=== PATIENT | female | born 1945 | race Caucasian/White ===

== ENCOUNTER 2017-07-27 15:29 | Emergency (ER) | payer SELFPAY ==
[~2017-07-27] VITALS: Ht 157.5 cm; Wt 63.5 kg
--- NOTE | 2017-07-27 15:29 | NUR ---
Patient to bed 2 by EMS
[2017-07-27 15:33] VITALS: BP 155/96
[2017-07-27] MEDS ORDERED: METFORMIN 500 MG (15:39)
[2017-07-27] MEDS ORDERED: LEVOTHYROXINE 25 MCG (15:39)
[2017-07-27] MEDS ORDERED: ATORVASTATIN 20 MG TABLET (15:39)
[2017-07-27] MEDS ORDERED: ASPIRIN 81 MG (15:39)
--- NOTE | 2017-07-27 15:41 | NUR ---
PATIENT PRESENTS TO ED WITH CONSTIPATION X 3 DAYS WITH DIFFICULTY WITH BOWEL MOVEMENTS. PT C/O NAUSEA; SKIN IS PINK/WARM/DRY; AAOX4 WITH EVEN AND STEADY GAIT; LUNGS CLEAR BL; HR EVEN AND REGULAR; PT DENIES ANY FEVER, CP, SOB, OR COUGH AT THIS TIME; PATIENT STATES PAIN OF 0/10 AT THIS TIME; VSS; PATIENT POSITIONED FOR COMFORT; HOB ELEVATED; BEDRAILS UP X2; BED DOWN. ER MD MADE AWARE OF PT STATUS.
--- NOTE | 2017-07-27 15:50 | NUR ---
DR. PISANO EVALUATING PT AT BEDSIDE.
[2017-07-27 16:11] VITALS: BP 147/82
--- NOTE | 2017-07-27 16:11 | NUR ---
Patient discharged with v/s stable. Written and verbal after care instructions given and explained. Patient verbalized understanding. Ambulatory with steady gait. All questions addressed prior to discharge. Advised to follow up with PMD.
== END 2017-07-27 16:11 | disposition home or self-care (01) ==
LOC: MED 15:29
DX: K59.00 Constipation, unspecified (principal); E11.9 Type 2 diabetes mellitus without complications; E03.9 Hypothyroidism, unspecified; Z79.84 Long term (current) use of oral hypoglycemic drugs; Z79.82 Long term (current) use of aspirin; Z79.899 Other long term (current) drug therapy
CPT/HCPCS: 81002; 99283